=== PATIENT | male | born 1985 | race Hispanic/Latino ===

== ENCOUNTER 2021-10-13 09:25 | Day surgery (SDC) | payer MEDICAID ==
[~2021-10-13 09:25] MED LIST: SODIUM CHLORIDE 0.9% 1000 ML 1,000 ML IV SCH
--- NOTE | 2021-10-13 11:09 | Anesthesia Day of Surgery ---
Anesthesia Day of Surgery - Day of Surgery Patient Examined: Yes Patient H&P Reviewed: Yes Patient is NPO: Yes Beta Blockers: No Cardiac Clearance: No Pulmonary Clearance: No Mirza's Test: N/A
--- NOTE | 2021-10-13 11:09 | Anesthesia Consultation ---
Anesthesia Consult and Med Hx Date of service: 10/13/21 - Airway Anesthetic Teeth Evaluation: Good ROM Head & Neck: Inadequate Mental/Hyoid Distance: Adequate Mallampati Class: Class II Intubation Access Assessment: Probably Good - Pulmonary Exam CTA: Yes - Pre-Operative Health Status ASA Pre-Surgery Classification: ASA3 Proposed Anesthetic Plan: MAC - Pulmonary Hx Smoking: No Hx Respiratory Symptoms: No - Cardiovascular System Hx Hypertension: Yes Hx Coronary Artery Disease: No Hx Angina: No - Central Nervous System Hx Neuromuscular Disorder: No Hx Seizures: No Hx Psychiatric Problems: No - Endocrine Hx Renal Disease: No Hx Liver Disease: No Hx Insulin Dependent Diabetes: No Hx Non-Insulin Dependent Diabetes: No Hx Thyroid Disease: No - Hematic Hx Anemia: No - Other Systems Hx Alcohol Use: No Hx Obesity: No (BMI 44.4kg)
[2021-10-13] MEDS ORDERED: fentaNYL 100 MCG/2 ML INJ ONE (11:13)
[2021-10-13] MEDS ORDERED: propofoL 200 MG/20 ML VIAL IV ONE (11:13)
[2021-10-13] MEDS ORDERED: LIDOCAINE MPF (2%) 20 MG/1 ML VIAL 5 ML ONE (11:13)
[2021-10-13] MEDS ORDERED: KETAMINE/STERILE WATER 50 MG/ML SYRINGE ONE (11:20)
--- NOTE | 2021-10-13 11:42 | Short Stay Summary ---
Short Stay Documentation Date of service: 10/13/21 Narrative H&P: The patient presents for diagnostic colonoscopy for rectal bleeding and possible hemorrhoid banding, if needed. - History Past Medical History: hypertension Past Surgical History: Other (Leg surgery 2018) Social history: no significant social history, , lives with family - Allergies and Medications Current Medications: Allergies No Known Allergies Allergy (Verified 10/09/21 17:01) Home Medications Medication Instructions Recorded Confirmed Last Taken Type Contrave ER 8-90 mg Tablet 10/09/21 Unknown History Losartan Potassium 10/09/21 Unknown History amLODIPine 10/09/21 Unknown History Active Medications Sodium Chloride (Nacl 0.9% 1000 Ml) 1,000 mls @ 50 mls/hr IV DIRECT GLENIS - Physical exam General appearance: no acute distress, well-nourished Integumentary: no rash, no growths, no abnormal pigmentation HEENT: Atraumatic, PERRLA, EOMI, Mucous membr. moist/pink Lungs: Clear to auscultation, Normal air movement Breasts: deferred Heart: Regular rate, Normal S1, Normal S2, No murmurs Gastrointestinal: normoactive bowel sounds, no tenderness, no distended, no masses, no organomegaly, obese Rectal Exam: normal exam-external/orifice, normal rectal tone, no mass Extremities: no ischemia, pulses intact, pulses symmetrical, No edema, normal temperature, normal color, Full ROM Neurological: Normal gait, Normal speech, Strength at 5/5 X4 ext, Normal tone, Sensation intact - Brief post op/procedure progress note Date of procedure: 10/13/21 Findings: see dictation Estimated blood loss: none Pathology: none Condition: stable - Disposition Condition at discharge: Good - Discharge Diagnoses (1) Hematochezia Status: Acute Short Stay Discharge Plan Activity: other (no driving for 24 hours) Weight Bearing Status: Full Weight Bearing Diet: regular, other (High fiber, plant based diet) Follow up with: MARIA VICTORIA TUCKER MD [Primary Care Provider] - 7 Days
--- NOTE | 2021-10-13 11:45 | Operative Report ---
Operative Report Operative Report: Date of procedure: 10/13/2021 Preprocedure diagnosis: Hematochezia Post procedure diagnosis: 1+ internal hemorrhoids, otherwise normal study Procedure: Colonoscopy to the cecum Endoscopist: Dr. Canales Anesthesia: Monitored anesthesia care per anesthesia department Estimated blood loss: 0 Medications: Monitored anesthesia care. See separate report by anesthesia for details. After careful discussion of the nature and purpose of the procedure as well as details of the technique risks benefits and alternatives the patient gave consent. Please see recent history and physical from the office. The patient was placed in the left lateral decubitus position and medicated per anesthesia. A rectal exam was performed sphincter tone was normal there were no masses palpable. The Hand Talk 570 scope was passed transanally and advanced under continuous direct vision without difficulty to the cecum. The colon was well prepared. The cecum was normal. The ascending colon was normal and on forward and retroflexed views. The transverse colon, descending colon, and sigmoid colon were normal. The rectum revealed grade 1 internal on retroflexed view close to the dentate line. The procedure was well-tolerated overall and the patient was observed in recovery. Conclusions: Very small internal hemorrhoids, otherwise normal colonoscopy to the cecum. Plan: High-fiber diet, increase fluid intake, fiber supplements as needed. Repeat colonoscopy for screening purposes in 10 years, sooner if clinically indicated. Signed electronically: John Canales M.D.
--- NOTE | 2021-10-13 13:11 | Post Anesthesia Evaluation ---
- Post Anesthesia Evaluation Patient Participated: Yes Airway Patent: Yes Stable Respiratory Function: Yes Nausea/Vomiting: No Temp > 96.8F: Yes Pain Manageable: Yes Adequeate Hydration: Yes Anesthesia Complications: No
[2021-10-13 14:00] VITALS: BP 115/64
== END 2021-10-13 12:30 | disposition home or self-care (01) ==
LOC: GIO 09:25
PROVIDERS: ATTEND Internal Medicine Gastroenterology
DX: K92.1 Melena (principal); K64.8 Other hemorrhoids; I10 Essential (primary) hypertension; E66.9 Obesity, unspecified; Z68.41 Body mass index [BMI] 40.0-44.9, adult; Z79.899 Other long term (current) drug therapy
CPT/HCPCS: 45378; J2704; J3010; J3490; J7030; J7120; Q0162